=== PATIENT | male | born 1955 | race Caucasian/White ===

== ENCOUNTER 2018-10-28 17:33 | Inpatient (IN) | payer OTHER ==
[2018-10-28] MEDS: ENOXAPARIN 100 MG/ML SYR SQ SCH ×2 (01:00→13:00)
[2018-10-28 18:05] LABS: Absolute Lymphocytes (CBC) 1.6 K/uL (0.7-4.9); Basophils % 0.7 % (0-1.3); Hematocrit 34.7 % (39.6-49.0); Lymphocytes % 19.9 % (15.3-44.8); RBC Red Blood Cell Count 4.03 M/uL (4.33-5.43)
[2018-10-28 18:19] LABS: Protime INR 1.1
[2018-10-28 18:25] LABS: ALT/SGPT 23 U/L (12-78); AST/SGOT 17 U/L (15-37); Albumin 3.4 g/dL (3.4-5.0); Alkaline Phosphatase 72 U/L (45-117); BUN Blood Urea Nitrogen 18 mg/dL (7-18); Bicarbonate 25 mmol/L (21-32); Bilirubin Direct < 0.1 mg/dL (0-0.2); Bilirubin Total 0.2 mg/dL (0.2-1.0); Glucose Level 99 mg/dL (74-106); Magnesium 2.1 mg/dL (1.8-2.4); NT PRO-BNP 148 pg/mL (<125); Potassium 4.2 mmol/L (3.5-5.1); Protein, Total 7.1 g/dL (6.4-8.2); Sodium Level 141 mmol/L (136-145); Troponin (Emerg Dept Use Only) 0.03 ng/mL (0.0-0.045)
--- NOTE | 2018-10-28 19:30 | RAD REPORT ---
EXAM DESCRIPTION: Jone Single View10/28/2018 6:09 pm CLINICAL HISTORY: Chest pain COMPARISON: none FINDINGS: The lungs appear clear of acute infiltrate. The heart is normal size IMPRESSION: No acute abnormalities displayed
--- NOTE | 2018-10-28 21:24 | ER ---
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 Transition of care: patient was not received from another setting of care. Onset of symptoms was October 28, 2018. Risk Assessment: Do you want to hurt yourself or someone else? Patient reports no desire to harm self or others. Initial Sepsis Screen: Does the patient meet any 2 criteria? No. Patient's initial sepsis screen is negative. Does the patient have a suspected source of infection? No. Patient's initial sepsis screen is negative. Care prior to arrival: Medication(s) given: ASA, 81 mg, x 4, Nitroglycerin, x 1. 17:37 Method Of Arrival: EMS: [facility] sg 17:37 Acuity: GROVER 3 sg Historical: - Allergies: 17:35 No Known Allergies; hb - Home Meds: 17:40 Lisinopril Oral [Active]; Ambien Oral [Active]; sg - PMHx: 17:40 Hypertension; sg - Immunization history:: Adult Immunizations up to date. - Social history:: Smoking status: Patient/guardian denies using tobacco. - Ebola Screening: : No symptoms or risks identified at this time. Screenin:38 Abuse screen: Denies threats or abuse. Denies injuries from another. Nutritional hb screening: No deficits noted. Tuberculosis screening: No symptoms or risk factors identified. Fall Risk None identified. Assessment: 17:40 General: Appears in no apparent distress. well groomed, well developed, well nourished, sg Behavior is calm, cooperative, appropriate for age. Pain: Complains of pain in chest Quality of pain is described as aching, sharp. Neuro: Level of Consciousness is awake, alert, obeys commands, Oriented to person, place, time. Cardiovascular: Capillary refill is brisk in bilateral fingers Patient's skin is warm and dry. Chest pain is described as vague, quality is heaviness. Respiratory: Airway is patent Respiratory effort is even, unlabored, Respiratory pattern is regular, symmetrical. GI: Abdomen is round non-distended. : No signs and/or symptoms were reported regarding the genitourinary system. EENT: No signs and/or symptoms were reported regarding the EENT system. Derm: Skin is pink, warm \T\ dry. Musculoskeletal: Circulation, motion, and sensation intact. Range of motion: intact in all extremities. 17:41 Reassessment: Patient appears in no apparent distress at this time. sg 19:23 Reassessment: Patient appears in no apparent distress at this time. Patient and/or cc3 family updated on plan of care and expected duration. Pain level reassessed. Patient is alert, oriented x 3, equal unlabored respirations, skin warm/dry/pink. Received this male patient from morning shift RN David as a case of chest pain but currently patient denies chest pain. With IV cannula gauge 20 at the left ACV saline locked. Patient refused to wear patient gown. Patient denies pain at this time. Patient states feeling better. Patient states symptoms have improved. General: Appears in no apparent distress. comfortable, Behavior is calm, cooperative, appropriate for age. Pain: Denies pain. Neuro: Level of Consciousness is awake, alert, obeys commands, Oriented to person, place, time, situation, Appropriate for age. Cardiovascular: Denies chest pain, Capillary refill < 3 seconds Patient's skin is warm and dry. Respiratory: Airway is patent Respiratory effort is even, unlabored, Respiratory pattern is regular, symmetrical. GI: Abdomen is round non-distended. : No signs and/or symptoms were reported regarding the genitourinary system. EENT: No signs and/or symptoms were reported regarding the EENT system. Derm: Skin is intact, is healthy with good turgor, Skin is pink, warm \T\ dry. normal. Musculoskeletal: Circulation, motion, and sensation intact. Range of motion: intact in all extremities. 19:23 Pain: Pain does not radiate. Pain began 4 hours ago. cc3 20:15 Reassessment: Patient appears in no apparent distress at this time. Patient and/or cc3 family updated on plan of care and expected duration. Pain level reassessed. Patient is alert, oriented x 3, equal unlabored respirations, skin warm/dry/pink. repeat troponin taken as ordered and sent to laboratory. Patient denies pain at this time. 21:17 Reassessment: Patient appears in no apparent distress at this time. Patient and/or cc3 family updated on plan of care and expected duration. Pain level reassessed. Patient is alert, oriented x 3, equal unlabored respirations, skin warm/dry/pink. Patient denies pain at this time. 22:36 Reassessment: Patient appears in no apparent distress at this time. Patient and/or cc3 family updated on plan of care and expected duration. Pain level reassessed. Patient is alert, oriented x 3, equal unlabored respirations, skin warm/dry/pink. Patient denies pain at this time. 23:07 Reassessment: Patient appears in no apparent distress at this time. Patient and/or cc3 family updated on plan of care and expected duration. Pain level reassessed. Patient is alert, oriented x 3, equal unlabored respirations, skin warm/dry/pink. Room available in 205, charge nurse Hetal called report and handed over to JOHN Brock for continuity of care and management. 23:19 Reassessment: Patient appears in no apparent distress at this time. Patient and/or cc3 family updated on plan of care and expected duration. Pain level reassessed. Patient is alert, oriented x 3, equal unlabored respirations, skin warm/dry/pink. Patient left ER for admission vitally stable by wheelchair escorted by charge nurse Fong. No valuables left in the patient's room. Patient denies pain at this time. Patient states feeling better. Patient states symptoms have improved. Vital Signs: 17:35 BP 154 / 74; Pulse 68; Resp 15; Temp 98.2; Pulse Ox 99% on R/A; Pain 2/10; hb 18:53 BP 125 / 66; Pulse 60; Resp 17; Pulse Ox 100% on R/A; Pain 1/10; sg 19:23 BP 143 / 61; Pulse 60; Resp 19 S; Temp 97.7(O); Pulse Ox 100% on R/A; Pain 0/10; cc3 20:33 BP 134 / 70; Pulse 66; Resp 12 S; Pulse Ox 99% on R/A; cc3 21:18 BP 140 / 81; Pulse 57; Resp 15 S; Pulse Ox 98% on R/A; cc3 22:35 BP 155 / 89; Pulse 66; Resp 17 S; Pulse Ox 99% on R/A; cc3 23:10 BP 129 / 55; Pulse 63; Resp 16 S; Pulse Ox 98% on R/A; Pain 0/10; cc3 ED Course: 17:34 Patient arrived in ED. hb 17:37 David Woodard, RN is Primary Nurse. sg 17:37 Arm band placed on. hb 17:38 Patient has correct armband on for positive identification. Bed in low position. Call hb light in reach. Side rails up X 1. cardiac monitor on. Pulse ox on. NIBP on. 17:39 Triage completed. sg 17:40 No provider procedures requiring assistance completed. Initial lab(s) drawn, by la, sg sent to lab. Maintain EMS IV. Dressing intact. Good blood return noted. Site clean \T\ dry. Gauge \T\ site: 20 G LAC. IV is patent, is intact, with good blood return, Flushed left antecubital with 5 ml normal saline. Patient maintains SpO2 saturation greater than 95% on room air. 17:45 EKG done, by technology professional. reviewed by Kit Kumar MD. sm3 17:55 Kit Kumar MD is Attending Physician. kdr 18:10 XRAY Chest (1 view) In Process Unspecified. EDMS 19:27 Attending Physician role handed off by Kit Kumar MD gs 19:27 Tolu Conway MD is Attending Physician. gs 21:23 Hazel Stafford MD is Hospitalizing Provider. gs 23:08 Patient admitted, IV remains in place. fc Administered Medications: 21:27 CANCELLED (Inappropriate at this time): Aspirin Chewable Tablet 324 mg PO once; 81 mg cc3 tablets x 4 Outcome: 21:23 Decision to Hospitalize by Provider. 23:07 Admitted to Tele accompanied by tech, via wheelchair, room 205, with chart, Report fc called to Nay LOPEZ 23:07 Condition: good 23:07 Discharge instructions given to patient, Instructed on the need for admit, Demonstrated understanding of instructions. 23:19 Patient left the ED. cc3 Signatures: Dispatcher [employer] EDMS David Woodard RN RN Kit Kumar MD MD [facility] Hetal Romeo RN RN Dina Madden RN RN Tolu Conway MD MD gs Montes, Shakira [facility] Joy Cuello cc3 Corrections: (The following items were deleted from the chart) 17:40 17:35 BP 146 / 86; Pulse 68bpm; Resp 15bpm; Pulse Ox 99% RA; Temp 98.2F; Pain 5/10; hb hb 22:36 21:17 Reassessment: Patient appears in no apparent distress at this time. Patient cc3 and/or family updated on plan of care and expected duration. Pain level reassessed. Patient is alert, oriented x 3, equal unlabored respirations, skin warm/dry/pink. cc3 23:43 19:23 Reassessment: Patient appears in no apparent distress at this time. Patient cc3 and/or family updated on plan of care and expected duration. Pain level reassessed. Patient is alert, oriented x 3, equal unlabored respirations, skin warm/dry/pink. Received this male patient from morning shift JOHN Hernandez as a case of chest pain but currently patient denies chest pain. With IV cannula gauge 20 at the left ACV saline locked. Patient denies pain at this time. Patient states feeling better. Patient states symptoms have improved. cc3
--- NOTE | 2018-10-28 21:25 | EDPHYS ---
Physician Documentation [facility] Name: Anil Penaloza Age: 63 yrs Sex: Male : 1955 Arrival Date: 10/28/2018 Time: 17:34 Bed 5 Private MD: ED Physician Tolu Conway HPI: 10/28 18:44 This 63 yrs old Male presents to ER via EMS with complaints of Chest Pain. kdr 18:44 The patient or guardian reports chest pain that is located primarily in the substernal kdr area, anterior chest wall, bilaterally, chest diffusely. Onset: suddenly, today, at 15:30. The pain radiates to jaw. Associated signs and symptoms: Pertinent positives: nausea, Pertinent negatives: abdominal pain, cough, dizziness, headache, lower extremity pain, lower extremity swelling, lightheadedness, near syncope, palpitations, recent travel, shortness of breath, syncope, vomiting. The chest pain is described as aching, dull, a heaviness, a pressure. Duration: The patient or guardian reports a single episode, that is still ongoing, but improving. Modifying factors: The symptoms are alleviated by nothing. the symptoms are aggravated by nothing. Severity of pain: At its worst the pain was a 7 / 10 in the emergency department the pain is a 3 / 10. EMS care prior to arrival includes: aspirin. The patient has not experienced similar symptoms in the past, Not exactly like this though he has been having jaw pain for the past two week intermittently. Historical: - Allergies: 17:35 No Known Allergies; hb - Home Meds: 17:40 Lisinopril Oral [Active]; Ambien Oral [Active]; sg - PMHx: 17:40 Hypertension; sg - Immunization history:: Adult Immunizations up to date. - Social history:: Smoking status: Patient/guardian denies using tobacco. - Ebola Screening: : No symptoms or risks identified at this time. ROS: 18:44 Constitutional: Negative for fever, chills, and weight loss, Eyes: Negative for injury, kdr pain, redness, and discharge, ENT: Negative for injury, pain, and discharge, Neck: Negative for injury, pain, and swelling, Respiratory: Negative for shortness of breath, cough, wheezing, and pleuritic chest pain, Abdomen/GI: Negative for abdominal pain, nausea, vomiting, diarrhea, and constipation, Back: Negative for injury and pain, : Negative for injury, bleeding, discharge, and swelling, MS/Extremity: Negative for injury and deformity, Skin: Negative for injury, rash, and discoloration, Neuro: Negative for headache, weakness, numbness, tingling, and seizure activity. Psych: Negative for depression, anxiety, suicide ideation, homicidal ideation, and hallucinations, Allergy/Immunology: Negative for hives, rash, and allergies, Endocrine: Negative for neck swelling, polydipsia, polyuria, polyphagia, and marked weight changes, Hematologic/Lymphatic: Negative for swollen nodes, abnormal bleeding, and unusual bruising. 18:44 Cardiovascular: Positive for chest pain, Negative for edema, orthopnea, palpitations, paroxysmal nocturnal dyspnea, acute changes. Exam: 18:44 Constitutional: This is a well developed, well nourished patient who is awake, alert, kdr and in no acute distress. Head/Face: Normocephalic, atraumatic. Eyes: Pupils equal round and reactive to light, extra-ocular motions intact. Lids and lashes normal. Conjunctiva and sclera are non-icteric and not injected. Cornea within normal limits. Periorbital areas with no swelling, redness, or edema. Neck: Trachea midline, no thyromegaly or masses palpated, and no cervical lymphadenopathy. Supple, full range of motion without nuchal rigidity, or vertebral point tenderness. No Meningismus. Chest/axilla: Normal chest wall appearance and motion. Nontender with no deformity. No lesions are appreciated. Cardiovascular: Regular rate and rhythm with a normal S1 and S2. No gallops, murmurs, or rubs. Normal PMI, no JVD. No pulse deficits. Respiratory: Lungs have equal breath sounds bilaterally, clear to auscultation and percussion. No rales, rhonchi or wheezes noted. No increased work of breathing, no retractions or nasal flaring. Abdomen/GI: Soft, non-tender, with normal bowel sounds. No distension or tympany. No guarding or rebound. No evidence of tenderness throughout. Back: No spinal tenderness. No costovertebral tenderness. Full range of motion. Skin: Warm, dry with normal turgor. Normal color with no rashes, no lesions, and no evidence of cellulitis. MS/ Extremity: Pulses equal, no cyanosis. Neurovascular intact. Full, normal range of motion. Neuro: Awake and alert, GCS 15, oriented to person, place, time, and situation. Cranial nerves II-XII grossly intact. Motor strength 5/5 in all extremities. Sensory grossly intact. Cerebellar exam normal. Normal gait. Psych: Awake, alert, with orientation to person, place and time. Behavior, mood, and affect are within normal limits. 21:20 ENT: Nares patent. No nasal discharge, no septal abnormalities noted. Tympanic gs membranes are normal and external auditory canals are clear. Oropharynx with no redness, swelling, or masses, exudates, or evidence of obstruction, uvula midline. Mucous membranes moist. 21:20 ECG was reviewed by the Attending Physician. Vital Signs: 17:35 BP 154 / 74; Pulse 68; Resp 15; Temp 98.2; Pulse Ox 99% on R/A; Pain 2/10; hb 18:53 BP 125 / 66; Pulse 60; Resp 17; Pulse Ox 100% on R/A; Pain 1/10; sg 19:23 BP 143 / 61; Pulse 60; Resp 19 S; Temp 97.7(O); Pulse Ox 100% on R/A; Pain 0/10; cc3 20:33 BP 134 / 70; Pulse 66; Resp 12 S; Pulse Ox 99% on R/A; cc3 21:18 BP 140 / 81; Pulse 57; Resp 15 S; Pulse Ox 98% on R/A; cc3 22:35 BP 155 / 89; Pulse 66; Resp 17 S; Pulse Ox 99% on R/A; cc3 23:10 BP 129 / 55; Pulse 63; Resp 16 S; Pulse Ox 98% on R/A; Pain 0/10; cc3 MDM: 18:44 HEART Score: History: Moderately Suspicious (1), ECG: Non specific repolarization kdr disturbance / LBTB / PM (1), Age: > 45 and < 65 years (1), Risk Factors: 1 or 2 risk factors (1), Total Score = 4. Data reviewed: vital signs, nurses notes, lab test result(s), EKG, radiologic studies. Counseling: I had a detailed discussion with the patient and/or guardian regarding: the historical points, exam findings, and any diagnostic results supporting the discharge/admit diagnosis, the presence of at least one elevated blood pressure reading (>120/80) during this emergency department visit, lab results, radiology results, the need for further work-up and treatment in the hospital. 19:53 Patient medically screened. 21:20 Differential diagnosis: acute myocardial infarction, coronary artery disease chest wall gs pain, congestive heart failure. 21:20 Response to treatment: the patient's symptoms have resolved after treatment, the patient's pain is gone, the patient's condition has returned to base line. 10/28 17:49 Order name: Basic Metabolic Panel; Complete Time: 19:36 10/28 17:49 Order name: CBC with Diff; Complete Time: 19:36 10/28 17:49 Order name: LFT's; Complete Time: 19:36 10/28 17:49 Order name: Magnesium; Complete Time: 19:36 10/28 17:49 Order name: NT PRO-BNP; Complete Time: 19:36 10/28 17:49 Order name: PT-INR; Complete Time: 19:36 10/28 17:49 Order name: Troponin (emerg Dept Use Only); Complete Time: 19:36 10/28 17:49 Order name: XRAY Chest (1 view); Complete Time: 19:36 10/28 17:49 Order name: EKG; Complete Time: 17:51 10/28 19:57 Order name: Troponin (emerg Dept Use Only); Complete Time: 21:06 10/28 22:38 Order name: CONS Physician Consult [facility] 10/28 22:38 Order name: Troponin I [facility] 10/28 22:39 Order name: Echo with Doppler [facility] 10/28 17:49 Order name: Cardiac monitoring; Complete Time: 17:49 10/28 17:49 Order name: EKG - Nurse/Tech; Complete Time: 17:49 10/28 17:49 Order name: IV Saline Lock; Complete Time: 17:49 10/28 17:49 Order name: Labs collected and sent; Complete Time: 17:49 10/28 17:49 Order name: O2 Per Protocol; Complete Time: 17:50 10/28 17:49 Order name: O2 Sat Monitoring; Complete Time: 17:50 10/28 22:39 Order name: EKG Electrocardiogram EDVT EC:20 Rate is 70 beats/min. Rhythm is regular. ID interval is prolonged. QRS interval is gs prolonged. T waves are Inverted. Clinical impression: lbbb. Interpreted by me. Administered Medications: : CANCELLED (Inappropriate at this time): Aspirin Chewable Tablet 324 mg PO once; 81 mg cc3 tablets x 4 Disposition: 10/28/18 21:23 Hospitalization ordered by Hazel Stafford for Observation. Preliminary diagnosis are Precordial pain, Abnormal serum enzyme levels. - Bed requested for Telemetry/MedSurg (observation). - Status is Observation. cc3 - Condition is Stable. - Problem is new. - Symptoms are resolved. UTI on Admission? No Signatures: Dispatcher [employer] EDVT David Woodard RN RN Kit Kumar MD MD [facility] [address] Maureen Hrenandez RN RN Dina Madden RN RN Tolu Conway MD MD Joy Cuello cc3 Corrections: (The following items were deleted from the chart) 21:18 Aspirin Chewable Tablet 324 mg PO once; 81 mg tablets x 4 ordered. cc3 22:46 21:23 Hospitalization Ordered by Hazel Stafford MD for Observation. Preliminary cg diagnosis is Precordial pain; Abnormal serum enzyme levels. Bed requested for Telemetry/MedSurg (observation). Status is Observation. Condition is Stable. Problem is new. Symptoms are resolved. UTI on Admission? No. 23:19 22:46 10/28/2018 21:23 Hospitalization Ordered by Hazel Stafford MD for Observation. cc3 Preliminary diagnosis is Precordial pain; Abnormal serum enzyme levels. Bed requested for Telemetry/MedSurg (observation). Status is Observation. Condition is Stable. Problem is new. Symptoms are resolved. UTI on Admission? No.
[2018-10-28] MEDS ORDERED: ALPRAZOLAM 0.25 MG TABLET PO PRN (22:31)
[2018-10-28] MEDS ORDERED: ACETAMINOPHEN 500 MG TAB PO PRN (22:31)
[2018-10-28] MEDS ORDERED: MORPHINE 4 MG/ML SYR IV PRN (22:31)
[2018-10-28 23:40] VITALS: BMI 30.7
[2018-10-29] MEDS: ENOXAPARIN 100 MG/ML SYR SQ SCH (00:18)
[2018-10-29] MEDS: ZOLPIDEM TARTRATE 10 MG TABLET PO SCH ×2 (00:18→20:53)
[2018-10-29] MEDS: LOSARTAN POTASSIUM 50 MG TABLET PO SCH ×2 (00:18→20:53)
[2018-10-29 06:15] LABS: Urine Appearance CLEAR; Urine Bilirubin NEGATIVE (NEG); Urine Blood NEGATIVE (NEG); Urine Color YELLOW; Urine Glucose NEGATIVE (NEG); Urine Protein NEGATIVE (NEG); Urine Specific Gravity 1.015 (1.005-1.030); Urine Urobilinogen 0.2 mg/dL (0.2-1.0)
[2018-10-29 06:22] LABS: Urine Microscopic Reflex NO UMIC
[2018-10-29 06:23] LABS: Absolute Lymphocytes (CBC) 1.4 K/uL (0.7-4.9); Basophils % 0.7 % (0-1.3); Hematocrit 34.2 % (39.6-49.0); Lymphocytes % 19.3 % (15.3-44.8); MPV 8.2 fL (7.6-11.3); RBC Red Blood Cell Count 3.99 M/uL (4.33-5.43)
[2018-10-29 06:42] LABS: Potassium 4.5 mmol/L (3.5-5.1)
--- NOTE | 2018-10-29 07:36 | P.HP ---
Certification for Inpatient Patient admitted to: Inpatient With expected LOS: >2 Midnights Patient will require the following post-hospital care: None Practitioner: I am a practitioner with admitting privileges, knowledge of patient current condition, hospital course, and medical plan of care. Services: Services provided to patient in accordance with Admission requirements found in Title 42 Section 412.3 of the Code of Federal Regulations Patient History Date of Service: 10/28/18 Reason for admission: Elevated troponin/CP/ACS History of Present Illness: Patient is a 63yo who was at home and suddenly experienced chest pain. Pain that is located primarily in the substernal area, anterior chest wall. The pain radiates to jaw. Patient also has nausea. Pain was 7/10. Patient noticed some jaw pain for 2 weeks. He smokes 1/2 PPD, and his father had heart disease by the age of 50. Patient will be admitted for further evaluation. Prior echocardiogram and stress test have been negative. Allergies No Known Allergies Allergy (Verified 02/13/16 09:48) Home Medications: Aspirin [Aspirin EC 81 MG] 81 mg PO BEDTIME 10/20/14 Zolpidem Tartrate [Ambien*] 10 mg PO BEDTIME 10/20/14 Losartan Potassium [Cozaar*] 50 mg PO BEDTIME 02/13/16 - Past Medical/Surgical History Has patient received pneumonia vaccine in the past: No Diabetic: No -: HTN -: Cataracts -: Sinus Surg - Social History Smoking Status: Current every day smoker Alcohol use: Yes CD- Drugs: No Caffeine use: Yes Place of Residence: Home Review of Systems 10-point ROS is otherwise unremarkable Physical Examination - Vital Signs Temperature: 97.1 F Blood Pressure: 118/55 Pulse: 57 Respirations: 15 Pulse Ox (%): 96 - Physical Exam General: Alert, In no apparent distress, Oriented x3 HEENT: Atraumatic, PERRLA, Mucous membr. moist/pink, EOMI, Sclerae nonicteric Neck: Supple, 2+ carotid pulse no bruit, No LAD, Without JVD or thyroid abnormality Respiratory: Clear to auscultation bilaterally, Normal air movement Cardiovascular: Regular rate/rhythm, Normal S1 S2, No murmurs Gastrointestinal: Normal bowel sounds, Soft and benign, Non-distended, No tenderness Musculoskeletal: No clubbing, No swelling, No tenderness Integumentary: No rashes Neurological: Normal gait, Normal speech, Normal strength at 5/5 x4 extr, Normal tone, Sensation intact, Cranial nerves 3-12 intact, Normal affect Lymphatics: No axilla or inguinal lymphadenopathy - Studies Laboratory Data (last 24 hrs) 10/28/18 17:50: PT 12.9 H, INR 1.10 10/28/18 17:50: WBC 7.9, Hgb 11.4 L, Hct 34.7 L, Plt Count 195 10/28/18 17:50: Sodium 141, Potassium 4.2, BUN 18, Creatinine 1.14, Glucose 99, Magnesium 2.1, Total Bilirubin 0.2, AST 17, ALT 23, Alkaline Phosphatase 72 Assessment & Plan - Problems (Diagnosis) (1) ACS (acute coronary syndrome) Current Visit: Yes Status: Acute (2) Tobacco abuse Current Visit: Yes Status: Acute (3) Family history of coronary artery disease in father Current Visit: Yes Status: Acute (4) HTN (hypertension) Current Visit: Yes Status: Acute - Plan PLAN: 1. Serial troponin and EKG, lipid profile 2. Cardiology consult 3. Lovenox 4. Antiplatelet therapy, statin therapy 5. Lopressor 6. NPO 7. Telemetry 8. Possible cardiac catheterization in am Discharge Plan: Home Plan to discharge in: Greater than 2 days - Advance Directives Does patient have a Living Will: No Does patient have a Durable POA for Healthcare: No - Code Status/Comfort Care Code Status Assessed: Yes Code Status: Full Code Critical Care: No Time Spent Managing PTS Care (In Minutes): 45
[2018-10-29] MEDS: ASPIRIN 325 MG TAB PO SCH (08:27)
[2018-10-29] MEDS: METOPROLOL TAR 25 MG TAB PO SCH ×2 (08:31→20:52)
[2018-10-29] MEDS ORDERED: NA CHLORIDE 0.9% 1,000 ML IV SCH (09:00)
[2018-10-29] MEDS ORDERED: ENOXAPARIN 100 MG/ML SYR SQ SCH (09:00)
[2018-10-29] MEDS ORDERED: HEPA 1000U/500MLS 1,000 UNIT/500 ML BAG IV ONE (11:08)
--- NOTE | 2018-10-29 11:24 | P.PN ---
Subjective Date of Service: 10/29/18 Chief Complaint: Elevated troponin/CP/ACS Subjective: Improving Patient seen and examined at bedside. at bedside. Chart reviewed and case discussed with nursing staff and cardiology. Patient doing well, no concerns complaints this morning. He is pending cardiac catheterization today Review of Systems 10-point ROS is otherwise unremarkable Physical Examination - Vital Signs Temperature: 97.1 F Blood Pressure: 140/64 Pulse: 59 Respirations: 15 Pulse Ox (%): 96 - Physical Exam General: Alert, In no apparent distress, Oriented x3 HEENT: Atraumatic, PERRLA, EOMI Neck: Supple, JVD not distended Respiratory: Clear to auscultation bilaterally, Normal air movement Cardiovascular: Regular rate/rhythm, Normal S1 S2 Gastrointestinal: Normal bowel sounds, No tenderness Musculoskeletal: No tenderness Integumentary: No rashes Neurological: Normal speech, Normal tone, Normal affect Lymphatics: No axilla or inguinal lymphadenopathy - Studies Laboratory Data (last 24 hrs) 10/28/18 17:50: PT 12.9 H, INR 1.10 10/28/18 17:50: WBC 7.9, Hgb 11.4 L, Hct 34.7 L, Plt Count 195 10/28/18 17:50: Sodium 141, Potassium 4.2, BUN 18, Creatinine 1.14, Glucose 99, Magnesium 2.1, Total Bilirubin 0.2, AST 17, ALT 23, Alkaline Phosphatase 72 Assessment And Plan - Current Problems (Diagnosis) (1) NSTEMI (non-ST elevated myocardial infarction) Current Visit: Yes Status: Acute Plan: -troponin elevated x 2 -Cardiology consult -Lovenox -Antiplatelet therapy, statin therapy -Lopressor -NPO, pending cardiac cath today -Telemetry (2) Family history of coronary artery disease in father Current Visit: Yes Status: Acute (3) HTN (hypertension) Current Visit: No Status: Chronic Plan: Stable, Continue current medications. Will monitor and adjust as needed. Qualifiers: Hypertension type: essential hypertension Qualified Code(s): I10 - Essential (primary) hypertension (4) Tobacco abuse Current Visit: Yes Status: Chronic - Plan DVT prophylaxis: Lovenox GI prophylaxis: None Diet: NPO pending cardiac catheterization Disposition: Pending cardiac catheterization today Discharge Plan: Home Plan to discharge in: 48 Hours
[2018-10-29] MEDS ORDERED: NA CHLORIDE 0.9% 500 ML ONE (11:28)
[2018-10-29] MEDS ORDERED: NA CHLORIDE 0.9% 50 ML ONE (11:28)
[2018-10-29] MEDS ORDERED: MIDAZOLAM HCL 2 MG/2 ML INJ ONE (11:29)
[2018-10-29] MEDS ORDERED: FENTANYL CITR 100 MCG/2 ML ONE (11:29)
[2018-10-29] MEDS ORDERED: ATROPINE SULF 1 MG/10 ML SYR IV ONE (11:30)
--- NOTE | 2018-10-29 11:35 | EKG ---
Test Date: 2018-10-29 Test Time: 07:49:53 Keeper Helper: JENN MEASUREMENT RESULTS: Intervals: Rate: 57 ND: 242 QRSD: 168 QT: 464 QTc: 451 [place]: P: 63 ND: 242 QRS: -56 T: 88 INTERPRETIVE STATEMENTS: Sinus bradycardia with 1st degree AV block Left axis deviation Left bundle branch block Abnormal ECG Compared to ECG 10/28/2018 17:32:10 Sinus rhythm no longer present Electronically Signed On 10-29-18 11:34:29 CDT by Jose Luis Jay
--- NOTE | 2018-10-29 11:37 | EKG ---
Test Date: 2018-10-28 Test Time: 17:32:10 Animal Taxonomist: JOSE MEASUREMENT RESULTS: Intervals: Rate: 70 HI: 234 QRSD: 166 QT: 442 QTc: 477 [place]: P: 59 HI: 234 QRS: -45 T: 98 INTERPRETIVE STATEMENTS: Sinus rhythm with 1st degree AV block Left axis deviation Left bundle branch block Abnormal ECG No previous ECG available for comparison Electronically Signed On 10-29-18 11:34:57 CDT by Jose Luis Jay
[2018-10-29] MEDS ORDERED: PRASUGREL (EFFIENT) 10 MG TAB ONE (12:04)
--- NOTE | 2018-10-29 12:45 | CON ---
Date of Consultation: 10/29/[address] Stafford's service on 10/28/2018. I saw the patient on 10/29/2018. Reason For Consultation: Non-ST elevation myocardial infarction. History Of Present Illness: Mr. Penaloza is a 63-year-old male, has a positive family history of he art disease. He smokes. He has a history of hypertension. No diabetes or dyslipidemia. Has been h aving some chest pain radiating to the jaw for about 2 weeks with exertion. Yesterday symptoms laste d about an hour. He was nauseated. No diaphoresis. No PND, orthopnea, pedal edema, palpitations, o r syncope. He came to the emergency room, was noted to have a left bundle-branch block. His troponi n was positive, consistent with non-ST elevation myocardial infarction. Allergies: NONE. Review of Systems: Negative. Social History: Positive for tobacco. Family History: Positive for heart disease. Medications: Listed by primary care physician. Physical Examination: Vital Signs: Stable. He was afebrile. He was in a sinus rhythm. HEENT: Negative. Neck: Supple without any bruit, lymphadenopathy, JVD, or thyromegaly. Chest: Clear to auscultation and percussion. Cardiac: Revealed a regular rhythm and rate. No murmurs, gallops, or rubs. Abdomen: Benign. Extremities: Reveal no clubbing, cyanosis, or edema. Diagnostic Data: Stated earlier. He had a normal creatinine. Impression And Plan: The patient with multiple cardiac risk factors for heart disease including fami ly history, tobacco use, hypertension with classic symptoms of acute coronary syndrome, left bundle-b ranch block, positive troponin. Patient needs a heart catheterization done today to evaluate his cor onary anatomy. Risk and the benefit of the procedure were explained to him and he agreed to proceed. MARKY/CALI Voice ID: [id number] Report ID: [id number]
--- NOTE | 2018-10-29 13:51 | ECHO ---
HEIGHT: 5 ft 11 in WEIGHT: 220 lb 4.8 oz DATE OF STUDY: 10/29/[address]: Hazel Stafford MD 2-DIMENSIONAL: YES M.MODE: YES DOPPLER: YES COLOR FLOW: YES TDS: NO PORTABLE: NO DEFINITY: NO BUBBLE STUDY: NO DIAGNOSIS: CHEST PAIN CARDIAC HISTORY: CATHERIZATION: NO SURGERY: NO PROSTHETIC VALVE: NO PACEMAKER: NO MEASUREMENTS (cm) DIASTOLIC (NORMALS) SYSTOLIC (NORMALS) IVSd 1.2 (0.6-1.2) LA Diam 3.9 (1.9-4.0) LVEF 51% LVIDd 3.9 (3.5-5.7) LVIDs 2.9 (2.0-3.5) %FS 25% LVPWd 1.1 (0.6-1.2) Ao Diam 2.7 (2.0-3.7) 2 DIMENSIONAL ASSESSMENT: RIGHT ATRIUM: NORMAL LEFT ATRIUM: NORMAL RIGHT VENTRICLE: NORMAL LEFT VENTRICLE: NORMAL TRICUSPID VALVE: NORMAL MITRAL VALVE: NORMAL PULMONIC VALVE: NORMAL AORTIC VALVE: NORMAL PERICARDIAL EFFUSION: NONE AORTIC ROOT: NORMAL LEFT VENTRICULAR WALL MOTION: NORMAL. DOPPLER/COLOR FLOW: NORMAL. COMMENTS: NORMAL 2D ECHO WITH DOPPLER. NO WALL MOTION ABNORMALITY. NO EFFUSION. TECHNOLOGIST: RADHA RODGERS
[2018-10-29] MEDS ORDERED: NA CHLORIDE 0.9% 1,000 ML IV ONE (14:00)
[2018-10-29] MEDS ORDERED: ATORVASTATIN 40 MG TAB PO SCH (21:00)
[2018-10-29 23:27] VITALS: O2SAT 96
--- NOTE | 2018-10-30 03:34 | OP ---
Date of Procedure: 10/29/2018 Surgeon: Jose Luis Jay MD Coal Trammer: Jen Sandoval. Indications: Mr. Penaloza is a 63-year-old male who was admitted with an acute non-ST elevation nahum cardial infarction. Description Of Procedure: He was brought to the metallurgical lab technician today on 10/29/2018 as an inpatient. He wa s prepped and draped in the routine sterile fashion. He received 2 mg of Versed and 25 of fentanyl f or sedation. 6-[place]izen [place] sheath was introduced in the right common femoral artery successfully. Angiog aline there was normal. Angio-Seal was used to close the case. Diagnostic catheterization with 6-Fr ench Fili catheter revealed a normal right coronary artery except for mild plaquing. LAD had some mild plaquing. The circumflex system showed a 90% occlusion of his first obtuse marginal, which was a large vessel with what appeared to be a thrombus. An XB 3.5 guide with side hole was used. A Cou gar wire was used to cross the lesion. Primary stent with a 3.0 x 12 Synergy at 11 atmospheres was d one with 0% residual. No thrombosis. No acute closure. Patient tolerated the procedure well. Ther e were no complications. Blood Loss: 5 cc. Total Conscious Sedation: 45 minutes. Final Diagnosis: Acute myocardial infarction, status post stent of the obtuse marginal. Patient received aspirin, Effient 60 mg, and Angiomax during the procedure. He will stay overnight, go home in the morning. He will be on Cozaar, aspirin, Plavix, and Lipitor 80 mg daily. NB/MODL Voice ID: [id number] Report ID: [id number]
[2018-10-30 04:25] LABS: Absolute Lymphocytes (CBC) 1.2 K/uL (0.7-4.9); Basophils % 0.6 % (0-1.3); Hematocrit 33.4 % (39.6-49.0); Lymphocytes % 13.7 % (15.3-44.8); RBC Red Blood Cell Count 3.93 M/uL (4.33-5.43)
[2018-10-30 04:43] LABS: Potassium 4.5 mmol/L (3.5-5.1)
[2018-10-30] MEDS: ASPIRIN 325 MG TAB PO SCH (08:12)
[2018-10-30] MEDS: METOPROLOL TAR 25 MG TAB PO SCH (08:12)
[2018-10-30 08:13] VITALS: BP 152/67
[2018-10-30 08:22] VITALS: TEMP 97.5
--- NOTE | 2018-10-30 14:58 | P.DS ---
Admission Date: 10/28/18 Discharge Date: 10/30/18 Disposition: ROUTINE DISCHARGE Discharge Condition: GOOD Reason for Admission: Elevated troponin/CP/ACS Consultations: Cardiology Procedures: 10/29/2018: Cardiac cath with stent placement to circumflex artery. - Problems (1) NSTEMI (non-ST elevated myocardial infarction) Status: Acute (2) Family history of coronary artery disease in father Status: Acute (3) HTN (hypertension) Status: Chronic Qualifiers: Hypertension type: essential hypertension Qualified Code(s): I10 - Essential (primary) hypertension (4) Tobacco abuse Status: Chronic Brief History of Present Illness: Patient is a 63yo who was at home and suddenly experienced chest pain. Pain that is located primarily in the substernal area, anterior chest wall. The pain radiates to jaw. Patient also has nausea. Pain was 7/10. Patient noticed some jaw pain for 2 weeks. He smokes 1/2 PPD, and his father had heart disease by the age of 50. Patient will be admitted for further evaluation. Prior echocardiogram and stress test have been negative. Hospital Course: Patient was admitted for chest pain, found to have elevated troponin. Cardiology consulted. Diagnosed with NSTEMI. He underwent a cardiac catheterization requiring a stent placement in circumflex artery. Patient tolerated procedure well. He was then discharged home in a safe and stable manner on Asa, plavix, staing and cozaar. he will follow up with Dr. Jay in his office. He otherwise remained stable throughout the stay. Vital Signs/Physical Exam: Temp Pulse Resp BP Pulse Ox 97.5 F 67 16 152/67 H 95 10/30/18 08:00 10/30/18 08:12 10/30/18 08:00 10/30/18 08:12 10/30/18 08:00 General: Alert, In no apparent distress, Oriented x3 HEENT: Atraumatic, PERRLA, EOMI Neck: Supple, JVD not distended Respiratory: Clear to auscultation bilaterally, Normal air movement Cardiovascular: Regular rate/rhythm, Normal S1 S2 Gastrointestinal: Normal bowel sounds, No tenderness Musculoskeletal: No tenderness Integumentary: No rashes Neurological: Normal speech, Normal tone, Normal affect Lymphatics: No axilla or inguinal lymphadenopathy Laboratory Data at Discharge: WBC 8.9 K/uL (4.3-10.9) D 10/30/18 04:00 Hgb 11.1 g/dL (13.6-17.9) L 10/30/18 04:00 Hct 33.4 % (39.6-49.0) L 10/30/18 04:00 Plt Count 184 K/uL (152-406) 10/30/18 04:00 PT 12.9 SECONDS (9.5-12.5) H 10/28/18 17:50 INR 1.10 10/28/18 17:50 Sodium 143 mmol/L (136-145) 10/30/18 04:00 Potassium 4.5 mmol/L (3.5-5.1) 10/30/18 04:00 BUN 16 mg/dL (7-18) 10/30/18 04:00 Creatinine 1.04 mg/dL (0.55-1.3) 10/30/18 04:00 Glucose 91 mg/dL (74-106) 10/30/18 04:00 Magnesium 2.1 mg/dL (1.8-2.4) 10/28/18 17:50 Total Bilirubin 0.2 mg/dL (0.2-1.0) 10/28/18 17:50 AST 17 U/L (15-37) 10/28/18 17:50 ALT 23 U/L (12-78) 10/28/18 17:50 Alkaline Phosphatase 72 U/L (45-117) 10/28/18 17:50 Troponin I 1.54 ng/mL (0.0-0.045) H* 10/29/18 05:35 Triglycerides Cancelled 10/29/18 06:00 Cholesterol Cancelled 10/29/18 06:00 HDL Cholesterol Cancelled 10/29/18 06:00 Cholesterol/HDL Ratio Cancelled 10/29/18 06:00 Home Medications: Aspirin [Aspirin EC 81 MG] 81 mg PO BEDTIME 10/20/14 Zolpidem Tartrate [Ambien*] 10 mg PO BEDTIME 10/20/14 Losartan Potassium [Cozaar*] 50 mg PO BEDTIME 02/13/16 Atorvastatin Calcium [Lipitor] 80 mg PO BEDTIME #30 tab 10/29/18 Clopidogrel Bisulfate [Plavix] 75 mg PO DAILY #30 tablet 10/29/18 New Medications: Atorvastatin Calcium [Lipitor] 80 mg PO BEDTIME #30 tab Clopidogrel Bisulfate [Plavix] 75 mg PO DAILY #30 tablet Patient Discharge Instructions: Please follow up with cardiology in 2 weeks. Diet: AHA Followup: Jose Luis Jay MD [ACTIVE - CAN ADMIT] -
--- NOTE | 2018-10-30 15:25 | PN ---
Date of Progress Note: 10/30/2018 Mr. Penaloza was admitted with an acute non-ST elevation myocardial infarction. Heart catheterizati on was done yesterday showing a 99% obtuse marginal stenosis and diffuse plaquing throughout. He und erwent a stent 3.0 x 12 Synergy without any complication and 0% residual. Overnight, he did well. H is groin showed no hematoma. Telemetry was normal. His examination is normal. He has no complaint. I will send him home today on Cozaar, aspirin, Lipitor 80 mg daily, and Plavix 75 mg daily. He was instructed to quit smoking. He will follow up with Dr. Castelan in the near future. MARKY/CALI Voice ID: [id number] Report ID: [id number]
== END 2018-10-30 08:40 | disposition home or self-care (01) | DRG 247 ==
LOC: ER 17:33 → 2ND 22:55
PROVIDERS: ADMIT Hospitalist; ATTEND Hospitalist
PROC: 027034Z Dilation of Coronary Artery, One Artery with Drug-eluting Intraluminal Device, Percutaneous Approach (ICD-10-PCS; principal; 2018-10-29)
PROC: 4A023N7 Measurement of Cardiac Sampling and Pressure, Left Heart, Percutaneous Approach (ICD-10-PCS; 2018-10-29)
PROC: B201YZZ Plain Radiography of Multiple Coronary Arteries using Other Contrast (ICD-10-PCS; 2018-10-29)
PROC: B205YZZ Plain Radiography of Left Heart using Other Contrast (ICD-10-PCS; 2018-10-29)
DX: I21.4 Non-ST elevation (NSTEMI) myocardial infarction (principal); I10 Essential (primary) hypertension; F17.210 Nicotine dependence, cigarettes, uncomplicated; Z82.49 Family history of ischemic heart disease and other diseases of the circulatory system
CPT/HCPCS: 36415; 71045; 80048; 80061; 80076; 81003; 83735; 83880; 84484; 85025; 85347; 85610; 92928; 93005; 93306; 93454; 99285; C1725; C1760; C1893; J0583; J1650; J2250; J3010; J7030

== ENCOUNTER 2019-05-20 06:27 | Day surgery (SDC) | payer OTHER ==
[2019-05-19 14:01] LABS: Absolute Lymphocytes (CBC) 1.2 K/uL (0.7-4.9); Basophils % 0.8 % (0-1.3); Hematocrit 32.4 % (39.6-49.0); Lymphocytes % 16.6 % (15.3-44.8); MPV 8.2 fL (7.6-11.3); RBC Red Blood Cell Count 4.02 M/uL (4.33-5.43)
[2019-05-19 14:04] LABS: Protime INR 1.15
[2019-05-19 14:14] LABS: Potassium 5.2 mmol/L (3.5-5.1)
--- NOTE | 2019-05-19 14:22 | RAD REPORT ---
EXAM DESCRIPTION: RAD - Chest Pa And Lat (2 Views) - 05/19/2019 2:13 pm CLINICAL HISTORY: left heart cath Chest pain. COMPARISON: Chest Single View dated 10/28/2018 FINDINGS: The lungs are clear. The heart is upper limit of normal in size. No displaced fractures. IMPRESSION: No acute or concerning finding suspected.
[2019-05-20] MEDS ORDERED: LIDOCAINE 1% MPF 30 ML VIAL ONE (06:34)
[2019-05-20] MEDS ORDERED: HEPA 1000U/500MLS 1,000 UNIT/500 ML BAG IV ONE (06:34)
[2019-05-20] MEDS ORDERED: NA CHLORIDE 0.9% 500 ML ONE (06:44)
[2019-05-20] MEDS ORDERED: MIDAZOLAM HCL 2 MG/2 ML INJ ONE ×2 (07:14→07:22)
[2019-05-20] MEDS ORDERED: NA CHLORIDE 0.9% 0 ML ONE (07:15)
[2019-05-20] MEDS ORDERED: ATROPINE SULF 1 MG/10 ML SYR IV ONE (07:15)
[2019-05-20] MEDS ORDERED: FENTANYL CITR 100 MCG/2 ML ONE (07:15)
--- NOTE | 2019-05-20 07:53 | OP ---
Surgeon: Jose Luis Jay MD Shell Assembler: Vlad Lubin. Admitted to my service as an outpatient to the finishing lab technician for a left heart catheterization and selectiv e coronary arteriogram. Indication: Coronary artery disease, status post stent of the OM in October 2018, now with unstable a ngina symptoms. Patient was prepped and draped in routine sterile fashion, given Versed for IV sedat ion. A 6-Kh[place] sheath introduced in the right common femoral artery successfully. Angio-Seal was u sed to close the case. Fili catheter 6-Khmer left and right were used to cannulate the left main and the right main respectively. He had a normal left main. The OM stent was perfectly patent. He has some moderate plaquing throughout the LAD, PDA, RCA and posterolateral but no focal stenosis. T here were no complications. Blood Loss: 5 mL. Postoperative Diagnosis: Moderate CAD, patent OM stent. Plan: To continue medical therapy. Also, suggested a proton pump inhibitor for his symptoms as they may have been gastroesophageal reflux disease related. Anesthesia: Total conscious sedation 30 minutes. MARKY/MODKrys Voice ID: [id number] Report ID: [id number]
[2019-05-20 09:52] VITALS: BP 121/76; TEMP 97.4; O2SAT 98
== END 2019-05-20 09:50 | disposition home health service (06) ==
LOC: CCL 06:27
DX: I25.110 Atherosclerotic heart disease of native coronary artery with unstable angina pectoris (principal); I10 Essential (primary) hypertension; E78.5 Hyperlipidemia, unspecified; Z95.5 Presence of coronary angioplasty implant and graft; Z87.891 Personal history of nicotine dependence; Z82.49 Family history of ischemic heart disease and other diseases of the circulatory system
CPT/HCPCS: 85025; 80048; 36415; 85610; 85730; 71046; 93454; C1893; C1760; J2250; J3010; J7040; J0583

== ENCOUNTER 2020-01-12 08:40 | Day surgery (SDC) | payer OTHER ==
--- NOTE | 2020-01-11 16:05 | RAD REPORT ---
EXAM DESCRIPTION: RAD - Chest Pa And Lat (2 Views) - 01/11/2020 3:59 pm CLINICAL HISTORY: pre op Chest pain. COMPARISON: Chest Pa And Lat (2 Views) dated 05/19/2019; Chest Single View dated 10/28/2018 FINDINGS: The lungs are clear. The heart is upper limit normal in size. No displaced fractures.
[2020-01-11 16:12] LABS: Absolute Lymphocytes (CBC) 1.3 K/uL (0.7-4.9); Hematocrit 30.8 % (39.6-49.0); Lymphocytes % 17.3 % (15.3-44.8); RBC Red Blood Cell Count 3.93 M/uL (4.33-5.43)
[2020-01-11 16:49] LABS: Potassium 4.7 mmol/L (3.5-5.1)
[2020-01-12] MEDS ORDERED: Ringers Lactate 1,000 ML IV ONE (09:34)
[2020-01-12] MEDS: CEFAZOLIN/SWI 1gm 1 GM/10 ML SYR ONE ×2 (10:45→11:10)
[2020-01-12] MEDS ORDERED: MIDAZOLAM HCL 2 MG/2 ML INJ ONE ×2 (10:54→11:33)
[2020-01-12] MEDS ORDERED: FENTANYL CITR 100 MCG/2 ML ONE (10:54)
[2020-01-12] MEDS ORDERED: propofoL 200 MG/20 ML VIAL IV ONE (10:54)
[2020-01-12] MEDS ORDERED: LIDOCAINE 1% MPF 5 ML VIAL ONE (10:54)
[2020-01-12] MEDS ORDERED: KETOROLAC 30 MG/ML INJ ONE (11:38)
[2020-01-12 12:03] VITALS: TEMP 97.5
--- NOTE | 2020-01-12 12:06 | P.BOP ---
Preoperative diagnosis: right upper back infected subq mass Postoperative diagnosis: same Primary procedure: excisional biopsy of right upper back infected subq mass 4x3 cm Estimated blood loss: <10cc Specimen: pus and mass Findings: see dicta Anesthesia: MAC Drain(s): Other Transferred to: Recovery Room Condition: Good
[2020-01-12] MEDS ORDERED: CODEINE 30MG/APAP 300MG TAB PO ONE (12:45)
--- NOTE | 2020-01-12 12:52 | OP ---
Date of Procedure: 01/12/2020 Surgeon: Garcia Mcclelland MD Preoperative Diagnosis: Right upper back infected subcutaneous mass. Postoperative Diagnosis: Right upper back infected subcutaneous mass. Procedure: Excisional biopsy of right upper back infected subcutaneous mass 4 x 3 cm. Estimated Blood Loss: Less than 10 mL. Specimen: Mass. Indications: This is the case of a 64-year-old patient with infected back mass. Regardless of antib iotics, he is still getting worse today. He is producing purulent discharge. Benefits, alternatives , and risks of excisional biopsy of that mass with drainage of an abscess fully explained, which incl ude, but not limited to infection, bleeding, damage to adjacent structures, anesthesia complication, recurrence, LA and even . He also understands this may not relieve the symptoms. He might need more than one surgical intervention. He understands he may require wound care. The will be do ing those. He signed a consent. The area of concern was marked by me and the patient in the holding room. Procedure In Detail: The patient was brought to the operating room and placed in supine position. A nesthesia was done without complication. The patient was placed in lateral decubitus position with p kelly protection. Local anesthesia was applied after prepping the area in the usual sterile fashion and after doing time-out. An incision was made in the skin and medially purulent discharge was obtai nehemias, so we proceeded to remove the mass and then drained the abscess. The mass completely excised. Abscess was cultured. Area was profusely irrigated. The hemostasis was obtained and due to that abo ut infection, we could have to leave it open to close by secondary intention. So, we packed the area wet-to-dry. The patient tolerated the procedure well. The patient was sent to recovery in stable condition. MALINDA/CALI Voice ID: [id number] Report ID: [id number]
--- NOTE | 2020-01-12 12:52 | DS ---
Diagnosis: Right upper back infected subcutaneous mass. Procedure: Excisional biopsy of right upper back infected subcutaneous mass with abscess drainage. Disposition: Home. Activity: As tolerated, no heavy lifting. Plan: Wet-to-dry dressing, normal saline starting tomorrow morning. May clean the area with soap an d water. MALINDA/CALI Voice ID: [id number] Report ID: [id number]
--- NOTE | 2020-01-12 13:00 | EKG ---
Test Date: 2020-01-11 Test Time: 15:37:08 Senior Gis Analyst: AUSTEN MEASUREMENT RESULTS: Intervals: Rate: 53 [place]: 246 QRSD: 170 QT: 468 QTc: 439 [place]: P: 68 [place]: 246 QRS: 3 T: 92 INTERPRETIVE STATEMENTS: Sinus bradycardia with 1st degree AV block Nonspecific intraventricular block Abnormal ECG Compared to ECG 10/29/2018 07:49:53 Left-axis deviation no longer present Left bundle-branch block no longer present Electronically Signed On 01-12-20 12:59:13 CDT by Jose Luis Jay
[2020-01-12 13:22] VITALS: BP 112/52; O2SAT 100
== END 2020-01-12 13:11 | disposition home or self-care (01) ==
LOC: OR 08:40
PROVIDERS: ATTEND Surgery
PROC: 0JB70ZZ Excision of Back Subcutaneous Tissue and Fascia, Open Approach (ICD-10-PCS; principal; 2020-01-12 13:00)
DX: L72.0 Epidermal cyst (principal); L08.9 Local infection of the skin and subcutaneous tissue, unspecified; I10 Essential (primary) hypertension; I51.9 Heart disease, unspecified; Z20.828 Contact with and (suspected) exposure to other viral communicable diseases
CPT/HCPCS: 93005; 87070; 85025; 80048; 36415; 87205; 88304; 87075; 71046; 11404; J2704; J2250 ×2; J3010; J0690; J7120; 88305

== ENCOUNTER 2022-03-27 13:57 | Emergency (ER) | payer OTHER ==
[2022-03-27 14:36] LABS: Absolute Lymphocytes (CBC) 0.8 K/uL (0.7-4.9); Hematocrit 21.4 % (39.6-49.0); Lymphocytes % 10.5 % (15.3-44.8); MCV 71.9 fL (80-100); MPV 7.1 fL (7.6-11.3); RBC Red Blood Cell Count 2.97 M/uL (4.33-5.43)
[2022-03-27 14:45] LABS: Protime INR 1.3
[2022-03-27 15:09] LABS: Potassium 4.4 mmol/L (3.5-5.1); Troponin High Sensitivity 9.6 pg/mL (<58.9)
[2022-03-27] MEDS ORDERED: NA CHLORIDE 0.9% 250 ML ONE ×2 (17:09→19:56)
[2022-03-27 21:45] LABS: Urine Blood Negative (Negative); Urine Glucose Negative (Negative); Urine Protein Negative (Negative)
--- NOTE | 2022-03-27 23:44 | ER ---
Nurse's Notes [facility] Name: Anil Penaloza Age: 66 yrs Sex: Male : 1955 Arrival Date: 03/27/2022 Time: 13:58 Bed 18 Private MD: Diagnosis: Anemia, unspecified Presentation: 03/27 14:06 Chief complaint: Patient states: Generalized weakness and SOB x 3 weeks ago. Pt reports aa5 he had heart cath scheduled for today and was told to come to ER due to low hemoglobin. Coronavirus screen: shortness of breath. Ebola Screen: Patient denies travel to an Ebola-affected area in the 21 days before illness onset. Initial Sepsis Screen: Does the patient meet any 2 criteria? No. Patient's initial sepsis screen is negative. Does the patient have a suspected source of infection? No. Patient's initial sepsis screen is negative. Risk Assessment: Do you want to hurt yourself or someone else? Patient reports no desire to harm self or others. Onset of symptoms was February 2022. 14:06 Method Of Arrival: Ambulatory aa5 14:06 Acuity: GROVER 2 aa5 Historical: - Allergies: 14:06 No Known Allergies; aa5 - Home Meds: 14:05 Plavix Oral [Active]; aa5 - PMHx: 14:02 Hypertension; aa5 - PSHx: 14:05 heart stent; aa5 - Immunization history:: Adult Immunizations unknown. - Social history:: Smoking status: Patient denies any tobacco usage or history of. Screenin:25 [facility] ED Fall Risk Assessment (Adult) History of falling in the last 3 months, aa9 including since admission No falls in past 3 months (0 pts) Confusion or Disorientation No (0 pts) Intoxicated or Sedated No (0 pts) Impaired Gait No (0 pts) Mobility Assist Device Used No (0 pt) Altered Elimination No (0 pt) Score/Fall Risk Level 0 - 2 = Low Risk. Abuse screen: Denies threats or abuse. Denies injuries from another. Nutritional screening: No deficits noted. Tuberculosis screening: No symptoms or risk factors identified. Assessment: 19:40 Reassessment: Patient appears in no apparent distress at this time. Patient is alert, aa9 oriented x 3, equal unlabored respirations, skin warm/dry/pink. blood infusion continued, pt denies pain, breathing equal and regular, at bedside. 20:56 Reassessment: Patient appears in no apparent distress at this time. Patient is alert, aa9 oriented x 3, equal unlabored respirations, skin warm/dry/pink. blood transfusion started. Pain: Denies pain. 22:24 Reassessment: Patient appears in no apparent distress at this time. Patient is alert, aa9 oriented x 3, equal unlabored respirations, skin warm/dry/pink. General: Appears in no apparent distress. comfortable, Behavior is calm, cooperative, appropriate for age. Pain: Denies pain. 23:22 Reassessment: Patient appears in no apparent distress at this time. blood transfusion aa9 complete. Pain: Denies pain. Vital Signs: 14:06 BP 162 / 74; Pulse 67; Resp 20 S; Temp 98.4(TE); Pulse Ox 100% on R/A; Weight 104.33 kg aa5 (R); Height 5 ft. 11 in. (180.34 cm) (R); 19:40 BP 135 / 65; Pulse 63; Resp 20 S; Pulse Ox 99% on R/A; aa9 22:24 BP 159 / 59; Pulse 63; Resp 19 S; Pulse Ox 100% on R/A; aa9 14:06 Body Mass Index 32.08 (104.33 kg, 180.34 cm) aa5 ED Course: 13:58 Patient arrived in ED. am2 14:04 Arm band placed on. aa5 14:08 Triage completed. aa5 14:20 Kilo Emmanuel [facility]. pm1 14:20 Usha Mathews MD is Attending Physician. pm1 14:20 Initial lab(s) drawn, by oh, sent to lab. Inserted saline lock: 20 gauge in right aa5 forearm, using aseptic technique. Blood collected. 15:16 Michell Castañeda, JOHN is Primary Nurse. kr3 18:33 Bb Add On Sent. kr3 22:25 Patient has correct armband on for positive identification. Bed in low position. Call aa9 light in reach. Side rails up X2. Adult w/ patient. Client placed on continuous cardiac and pulse oximetry monitoring. NIBP monitoring applied. Door closed. Warm blanket given. 22:25 No provider procedures requiring assistance completed. aa9 23:48 IV discontinued, intact, bleeding controlled, No redness/swelling at site. Pressure aa9 dressing applied. Administered Medications: 23:31 Drug: NS 0.9% 500 ml Route: IV; Rate: bolus; Site: right antecubital; aa9 Medication: 22:25 VIS not applicable for this client. aa9 Outcome: 23:43 Discharge ordered by . pm1 23:48 Discharged to home ambulatory, with significant other. aa9 23:48 Condition: stable 23:48 Discharge instructions given to patient, family, Instructed on discharge instructions, follow up and referral plans. Demonstrated understanding of instructions, follow-up care. 23:48 Patient left the ED. aa9 Signatures: Leah Orellana, RN RN aa5 Kilo Emmanuel NP HORTICULTURALIST pm1 Desiree Angel am2 Sasha Ga, RN RN aa9 Michell Castañeda RN RN kr3
--- NOTE | 2022-03-27 23:44 | EDPHYS ---
Physician Documentation [facility] Name: Anil Penaloza Age: 66 yrs Sex: Male : 1955 Arrival Date: 03/27/2022 Time: 13:58 Bed 18 Private MD: ED Physician Usha Mathews HPI: 03/27 14:09 This 66 yrs old Male presents to ER via Ambulatory with complaints of Abnormal Lab pm1 Results - low hgb. 14:09 66-year-old male presents ER with complaints of abnormal lab results, low hemoglobin. pm1 Patient was getting preop labs for cardiac cath tomorrow with Dr. Awad and was informed that his hemoglobin was low and recommended evaluation and treatment in the ER. Patient with 3 weeks of shortness of breath on exertion and was seen by cardiology with planned cardiac cath tomorrow. Patient denies any obvious bleeding. Negative for black or tarry stool, or bright red blood in stool or urine. Historical: - Allergies: 14:06 No Known Allergies; aa5 - Home Meds: 14:05 Plavix Oral [Active]; aa5 - PMHx: 14:02 Hypertension; aa5 - PSHx: 14:05 heart stent; aa5 - Immunization history:: Adult Immunizations unknown. - Social history:: Smoking status: Patient denies any tobacco usage or history of. ROS: 14:09 Constitutional: Negative for fever, chills, and weight loss. pm1 14:09 Abdomen/GI: Negative for abdominal pain, nausea, vomiting, diarrhea, and constipation, Back: Negative for injury and pain, : Negative for injury, bleeding, discharge, and swelling, MS/Extremity: Negative for injury and deformity, Skin: Negative for injury, rash, and discoloration, Neuro: Negative for headache, weakness, numbness, tingling, and seizure. 14:09 Cardiovascular: Negative for chest pain. 14:09 Respiratory: Positive for shortness of breath, on exertion. 14:09 All other systems are negative. Exam: 14:09 Constitutional: This is a well developed, well nourished patient who is awake, alert, pm1 and in no acute distress. Head/Face: Normocephalic, atraumatic. 14:09 Eyes: Periorbital structures: no acute changes, Conjunctiva: pale. 14:09 ENT: Exam is negative for acute changes, Mouth: no acute changes, Lips: normal, moist, Oral mucosa: normal, pink and intact, moist. 14:09 Cardiovascular: Exam negative for acute changes, Rate: normal, Rhythm: regular, Pulses: no pulse deficits are appreciated, Heart sounds: normal, normal S1and S2. 14:09 Respiratory: Exam negative for acute changes, respiratory distress, shortness of breath, Breath sounds: are clear throughout. 14:09 Skin: Appearance: normal except for affected area, Color: pale. 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 Vital Signs: 14:06 BP 162 / 74; Pulse 67; Resp 20 S; Temp 98.4(TE); Pulse Ox 100% on R/A; Weight 104.33 kg aa5 (R); Height 5 ft. 11 in. (180.34 cm) (R); 19:40 BP 135 / 65; Pulse 63; Resp 20 S; Pulse Ox 99% on R/A; aa9 22:24 BP 159 / 59; Pulse 63; Resp 19 S; Pulse Ox 100% on R/A; aa9 14:06 Body Mass Index 32.08 (104.33 kg, 180.34 cm) aa5 MDM: 14:20 Patient medically screened. pm1 14:34 Data reviewed: radiologic studies, Chest x-ray from this morning reviewed. Report: pm1 Negative for acute cardiopulmonary findings. 17:20 Differential diagnosis: Unspecified Anemia, Iron deficiency GI bleed. pm1 17:40 ED course: Patient will be getting NS 250 mL x 2 with his blood transfusion. We will pm1 add 500 mL bolus to give patient 1 L total of NS after infusion of 2nd unit of blood. BUN and creatinine 32 and 1.6 respectively suspect some dehydration present and will hydrate. 23:42 Counseling: I had a detailed discussion with the patient and/or guardian regarding: the pm1 historical points, exam findings, and any diagnostic results supporting the discharge/admit diagnosis, lab results, the need for outpatient follow up, a pharm spec, a family practitioner, to return to the emergency department if symptoms worsen or persist or if there are any questions or concerns that arise at home. 03/27 14:08 Order name: Basic Metabolic Panel; Complete Time: 17:20 [facility] 03/27 14:08 Order name: CBC with Diff; Complete Time: 14:40 03/27 14:08 Order name: Troponin HS; Complete Time: 17:20 [facility] 03/27 14:08 Order name: Type And Screen [facility] 03/27 14:15 Order name: PT-INR; Complete Time: 17:20 [facility] 03/27 14:54 Order name: Bb Add On bd 03/27 14:08 Order name: EKG; Complete Time: 14:09 [facility] 03/27 14:08 Order name: Cardiac monitoring; Complete Time: 18:40 [facility] 03/27 14:08 Order name: EKG - Nurse/Tech; Complete Time: 18:40 [facility] 03/27 14:59 Order name: Packed RBC Leukored [facility] 03/27 16:29 Order name: ABO/RH no charge; Complete Time: 17:20 [facility] 03/27 21:45 Order name: Urine Dipstick-Ancillary; Complete Time: 22:14 [facility] 03/27 14:08 Order name: IV Saline Lock; Complete Time: 14:24 [facility] 03/27 14:08 Order name: Labs collected and sent; Complete Time: 14:24 [facility] 03/27 14:08 Order name: O2 Per Protocol; Complete Time: 18:40 [facility] 03/27 14:08 Order name: O2 Sat Monitoring; Complete Time: 18:40 [facility] 03/27 14:46 Order name: Transfuse; Complete Time: 18:33 pm1 03/27 20:44 Order name: Urine Dipstick-Ancillary (obtain specimen); Complete Time: 21:44 pm1 Administered Medications: 23:31 Drug: NS 0.9% 500 ml Route: IV; Rate: bolus; Site: right antecubital; aa9 Disposition Summary: 03/27/22 23:43 Discharge Ordered Location: Home pm1 Problem: new pm1 Symptoms: have improved pm1 Condition: Stable pm1 Diagnosis - Anemia, unspecified pm1 Followup: pm1 - With: Emergency Department - When: As needed - Reason: Worsening of condition Followup: pm1 - With: Private Physician - When: 2 - 3 days - Reason: Recheck today's complaints, Continuance of care, Re-evaluation by your physician Discharge Instructions: - Discharge Summary Sheet pm1 - Anemia pm1 - Blood Transfusion, Adult pm1 Forms: - Medication Reconciliation Form pm1 - Thank You Letter pm1 - Antibiotic Education pm1 - Prescription Opioid Use pm1 Signatures: Dispatcher [employer] EDRI Leah Orellana, RN RN aa5 Kilo Emmanuel NP [employer] pm1 Sasha Ga RN RN aa9 Corrections: (The following items were deleted from the chart) 14:32 14:09 Chest Single View+RAD.RAD.BRZ ordered. [facility] EDRI 17:46 17:40 ED course: Patient will be getting NS 250 mL x 2 with his blood transfusion. We pm1 will add 500 mL bolus to give patient 1 L total of NS. BUN and creatinine 32 and 1.6 respectively suspect some dehydration will hydrate. pm1
[2022-03-27 23:58] VITALS: TEMP 98.4
[2022-03-27 23:59] VITALS: BP 159/59; O2SAT 100
== END 2022-03-27 23:48 | disposition home or self-care (01) ==
LOC: ER 13:57
PROC: 30233N1 Transfusion of Nonautologous Red Blood Cells into Peripheral Vein, Percutaneous Approach (ICD-10-PCS; principal; 2022-03-27)
DX: D64.9 Anemia, unspecified (principal); I10 Essential (primary) hypertension; Z79.01 Long term (current) use of anticoagulants; Z95.818 Presence of other cardiac implants and grafts
CPT/HCPCS: 85025; 80048; 36415; 86900; 86850; 85610; 86901; 81003; 84484; 36430; P9016 ×2; J7050 ×2

== ENCOUNTER 2022-05-07 18:35 | Emergency (ER) | payer OTHER ==
[2022-05-07 20:50] LABS: Hematocrit 23.9 % (39.6-49.0); MCV 75.1 fL (80-100); MPV 6.9 fL (7.6-11.3); RBC Red Blood Cell Count 3.18 M/uL (4.33-5.43)
[2022-05-07 20:51] LABS: Anisocytosis 1+; Blood Morphology Comment NOTED (NOT SEEN); Platelet Estimate ADEQ; White Blood Cell Scan OK (OK)
[2022-05-07 20:59] LABS: Protime INR 1.19
[2022-05-07 21:05] LABS: Potassium 4.6 mmol/L (3.5-5.1)
--- NOTE | 2022-05-07 21:24 | EDPHYS ---
Physician Documentation [facility] Name: Anil Penaloza Age: 66 yrs Sex: Male : 1955 Arrival Date: 05/07/2022 Time: 18:38 Bed IW1 Private MD: Stanley NICHOLS; Martin Pérez H ED Physician Kit Kumar HPI: 05/07 21:18 This 66 yrs old Male presents to ER via Ambulatory with complaints of Abnormal Lab kdr Results, blood transfusion. 21:18 Patient was sent by his physician staff for possible blood transfusion secondary to a kdr low hemoglobin. Patient had blood draw about a week ago and the results are given in today and were reported as 7.2 hemoglobin. Patient denies any new symptoms does not feel short of breath not have any chest pain denies rectal bleeding or vomiting. He has had in the last several weeks a full GI upper and lower work-up without etiology for his low hemoglobin being found. Patient is completely asymptomatic and would not be here except for the urge from his physician's office to come get checked out.. Onset: The symptoms/episode began/occurred at an unknown time. Severity of symptoms: At their worst the symptoms were mild moderate just prior to arrival, in the emergency department the symptoms are unchanged. The patient has experienced similar episodes in the past, chronically. The patient has been recently seen by a physician: the patient's primary care provider. Historical: - Allergies: 19:25 No Known Allergies; pf1 - Immunization history:: Adult Immunizations up to date. - Social history:: Smoking status: unknown. ROS: 21:18 Constitutional: Negative for fever, chills, and weight loss, Eyes: Negative for injury, kdr pain, redness, and discharge, ENT: Negative for injury, pain, and discharge, Neck: Negative for injury, pain, and swelling, Cardiovascular: Negative for chest pain, palpitations, and edema, Respiratory: Negative for shortness of breath, cough, wheezing, and pleuritic chest pain, Abdomen/GI: Negative for abdominal pain, nausea, vomiting, diarrhea, and constipation, Back: Negative for injury and pain, : Negative for injury, bleeding, discharge, and swelling, MS/Extremity: Negative for injury and deformity, Skin: Negative for injury, rash, and discoloration, Neuro: Negative for headache, weakness, numbness, tingling, and seizure activity. Psych: Negative for depression, anxiety, suicide ideation, homicidal ideation, and hallucinations, Allergy/Immunology: Negative for hives, rash, and allergies, Endocrine: Negative for neck swelling, polydipsia, polyuria, polyphagia, and marked weight changes, Hematologic/Lymphatic: Negative for swollen nodes, abnormal bleeding, and unusual bruising. Exam: 21:18 Constitutional: [facility] and no exam was performed other than kdr gross observation. Patient appeared alert and oriented and without any evidence of endorgan damage secondary to a globin. He ambulated and was not dizzy or orthostatic. His speech was clear and appropriate. He had no signs of cyanosis. He was not short of breath. He denies any abdominal pain. His exam otherwise from a gross observation perspective was completely normal Vital Signs: 19:22 BP 164 / 65; Pulse 73; Resp 18; Temp 98.1; Pulse Ox 99% on R/A; Weight 104.33 kg; pf1 Height 5 ft. 11 in. (180.34 cm); Pain 0/10; 21:39 BP 157 / 60; Pulse 68; Resp 18; Temp 98; Pulse Ox 100% on R/A; Pain 0/10; pf1 19:22 Body Mass Index 32.08 (104.33 kg, 180.34 cm) pf1 MDM: 21:18 Data reviewed: vital signs, nurses notes, lab test result(s). ED course: Patient was kdr stable in the ED and was happy with the care provided and the plan for discharge and follow-up. 21:23 Patient medically screened. kdr 21:23 ED course: Patient also reported that he had been on iron supplementation for the last kdr week or so as well. 05/07 19:54 Order name: CBC with Diff kdr 05/07 19:54 Order name: Chem 7 kdr 05/07 19:54 Order name: PT-INR kdr 05/07 19:54 Order name: Type And Screen kdr 05/07 20:52 Order name: CBC with Automated Diff; Complete Time: 21:11 EDMS 05/07 20:52 Order name: CBC Smear Scan; Complete Time: 21:11 EDMS 05/07 20:59 Order name: Protime (+INR); Complete Time: 21:11 EDMS 05/07 21:05 Order name: Basic Metabolic Panel; Complete Time: 21:11 EDMS 05/07 21:35 Order name: Type and Screen EDMS Administered Medications: No medications were administered Disposition Summary: 05/07/22 21:23 Discharge Ordered Location: Home kdr Problem: new kdr Symptoms: have improved kdr Condition: Stable kdr Diagnosis - Anemia, unspecified kdr Followup: kdr - With: Martin Pérez MD - When: 2 - 3 days - Reason: If symptoms return, Further diagnostic work-up, Recheck today's complaints, Continuance of care, Re-evaluation by your physician Discharge Instructions: - Discharge Summary Sheet kdr - Anemia kdr Forms: - Medication Reconciliation Form kdr - Thank You Letter kdr Signatures: Dispatcher [employer] Kit Berkowitz MD MD kdr Rachel gaytan RN RN pf1 Corrections: (The following items were deleted from the chart) 19:26 19:25 PMHx: Hypertension; pf1 pf1 19:26 19:25 PSHx: heart stent; pf1 pf1
--- NOTE | 2022-05-07 21:24 | ER ---
Nurse's Notes [facility] Name: Anil Penaloza Age: 66 yrs Sex: Male : 1955 Arrival Date: 05/07/2022 Time: 18:38 Bed IW1 Private MD: Stanley NICHOLS; Martin Pérez H Diagnosis: Anemia, unspecified Presentation: 05/07 19:22 Chief complaint: Patient states: Patient stated was sent by Dr. Pérez's office to have pf1 hemoglobin checked. Patient stated blood was taken 1 week and results came back today with a hemoglobin 7.2. Patient stated denies any symptoms or pain today. Patient stated had an endoscopy and colonoscopy on 2 weeks ago. Patient stated received 2 units of blood in March,. Coronavirus screen: Vaccine status: Patient reports receiving the 1st dose of the Covid vaccine. Ebola Screen: Patient negative for fever greater than or equal to 101.5 degrees Fahrenheit, and additional compatible Ebola Virus Disease symptoms. Initial Sepsis Screen: Does the patient meet any 2 criteria? No. Patient's initial sepsis screen is negative. Does the patient have a suspected source of infection? No. Patient's initial sepsis screen is negative. Risk Assessment: Do you want to hurt yourself or someone else?. Risk Assessment: Do you want to hurt yourself or someone else? Patient reports no desire to harm self or others. 19:22 Method Of Arrival: Ambulatory pf1 19:22 Acuity: GROVER 3 pf1 19:30 Onset of symptoms was May 07, 2022. pf1 Triage Assessment: 19:35 General: Appears in no apparent distress. pf1 19:35 General: Behavior is calm, cooperative, appropriate for age, quiet. pf1 Historical: - Allergies: 19:25 No Known Allergies; pf1 - Immunization history:: Adult Immunizations up to date. - Social history:: Smoking status: unknown. Screenin:40 [facility] ED Fall Risk Assessment (Adult) History of falling in the last 3 months, pf1 including since admission No falls in past 3 months (0 pts) Confusion or Disorientation No (0 pts) Intoxicated or Sedated No (0 pts) Impaired Gait No (0 pts) Mobility Assist Device Used No (0 pt) Altered Elimination No (0 pt) Score/Fall Risk Level 0 - 2 = Low Risk Oriented to surroundings, Maintained a safe environment, Educated pt \T\ family on fall prevention, incl call for assistance when getting out of bed, Assessed \T\ reinforced patient's understanding of fall precautions, Provided non-skid footwear, Hourly rounding (assess needs \T\ fall precautionary measures) done, Used ambulatory aids as needed (educated on \T\ assisted with), Used gait belt as appropriate. 19:40 Abuse screen: Denies threats or abuse. Nutritional screening: No deficits noted. pf1 Tuberculosis screening: No symptoms or risk factors identified. Assessment: 19:35 General: Appears in no apparent distress. comfortable, well groomed, well developed, pf1 Behavior is calm, cooperative, appropriate for age, quiet. 19:35 General: Patient stated needs to have hemoglobin levels checked . Pain: Denies pain. pf1 Neuro: No deficits noted. Level of Consciousness is awake, alert, obeys commands, Oriented to person, place, time, situation. Cardiovascular: No deficits noted. Cardiovascular: Capillary refill < 3 seconds Patient's skin is warm and dry. Respiratory: No deficits noted. Airway is patent Trachea midline Respiratory effort is even, unlabored, Respiratory pattern is regular, symmetrical, Breath sounds are clear bilaterally. GI: No deficits noted. No signs and/or symptoms were reported involving the gastrointestinal system. : No deficits noted. No signs and/or symptoms were reported regarding the genitourinary system. EENT: No deficits noted. No signs and/or symptoms were reported regarding the EENT system. Derm: No deficits noted. No signs and/or symptoms reported regarding the dermatologic system. Musculoskeletal: No deficits noted. No signs and/or symptoms reported regarding the musculoskeletal system. Vital Signs: 19:22 BP 164 / 65; Pulse 73; Resp 18; Temp 98.1; Pulse Ox 99% on R/A; Weight 104.33 kg; pf1 Height 5 ft. 11 in. (180.34 cm); Pain 0/10; 21:39 BP 157 / 60; Pulse 68; Resp 18; Temp 98; Pulse Ox 100% on R/A; Pain 0/10; pf1 19:22 Body Mass Index 32.08 (104.33 kg, 180.34 cm) pf1 ED Course: 18:38 Patient arrived in ED. as 18:38 Stanley NICHOLS is Private Physician. as 18:38 Martin Pérez MD is Private Physician. as 19:12 Kit Kumar MD is Attending Physician. kdr 19:25 Triage completed. pf1 19:35 Patient has correct armband on for positive identification. pf1 20:42 Type And Screen Sent. bc6 20:42 PT-INR Sent. bc6 20:42 Chem 7 Sent. bc6 20:42 CBC with Diff Sent. bc6 20:42 Inserted saline lock: 20 gauge in left antecubital area, using aseptic technique. bc6 21:00 Arm band placed on. pf1 21:22 Martin Pérez MD is Referral Physician. kdr 21:40 No provider procedures requiring assistance completed. IV discontinued, intact, pf1 bleeding controlled, No redness/swelling at site. Pressure dressing applied. Administered Medications: No medications were administered Medication: 19:30 VIS not applicable for this client. pf1 Outcome: 21:23 Discharge ordered by . kdr 21:41 Patient left the ED. pf1 21:41 Discharged to home ambulatory, with family. pf1 21:41 Condition: good pf1 21:41 Discharge instructions given to patient, Instructed on discharge instructions, follow up and referral plans. Demonstrated understanding of instructions, follow-up care. Signatures: Kit Kumar MD MD kdr Tanya Mcclelland Pamala, RN RN pf1 Jennifer Sweeney 6 Corrections: (The following items were deleted from the chart) 19:26 19:25 PMHx: Hypertension; pf1 pf1 : 19:25 PSHx: heart stent; pf1 pf1
[2022-05-07 22:05] VITALS: BP 157/60; TEMP 98; O2SAT 100
== END 2022-05-07 21:41 | disposition home or self-care (01) ==
LOC: ER 18:35
DX: D64.9 Anemia, unspecified (principal)
CPT/HCPCS: 36415; 80048; 85025; 85610; 86850; 86900; 86901

== ENCOUNTER 2024-06-10 12:40 | Day surgery (SDC) | payer OTHER ==
[2024-06-08 10:19] LABS: Absolute Basophils 0.1 K/uL (0-0.5); Absolute Eosinophils 0.4 K/uL (0-0.5); Absolute Monocytes 0.7 K/uL (0.1-1.3); Absolute Neutrophil 6.3 K/uL (1.8-8.0); Basophils % 1.3 % (0-1.3); Eosinophils % 4.6 % (0-4.4); Hematocrit 33.4 % (39.6-49.0); Hemoglobin 11.2 g/dL (13.6-17.9); Lymphocytes % 12.3 % (15.3-44.8); MCH 28.1 pg (27.0-35.0); MCHC 33.7 g/dL (32.0-36.0); MCV 83.6 fL (80-100); MPV 7.2 fL (7.6-11.3); Monocytes % 7.6 % (3.3-12.3); Neutrophils % 74.2 % (41.7-73.7); Nucleated Red Blood Cells % 0.1 % (0-0); Platelets 233 thou/uL (152-406); RBC Red Blood Cell Count 3.99 M/uL (4.33-5.43); Red Cell Distribution Width 15.5 % (12.1-15.2)
[2024-06-08 10:32] LABS: PT Prothrombin Time 13.4 SECONDS (10-13.0); PTT, Activated Partial Thromb 35.3 SECONDS (27.2-37.4); Protime INR 1.18
[2024-06-08 10:37] LABS: Anion Gap 7.1 mEq/L (5.0-15.0); Potassium 5.1 mEq/L (3.5-5.1)
--- NOTE | 2024-06-08 11:27 | RAD REPORT ---
EXAM: Chest Pa And Lat (2 Views) HISTORY: 68 years Male Pre-op pending heart cath COMPARISON: 11/25/2022 FINDINGS: LUNGS/PLEURA: The lungs are clear. No pleural effusions or pneumothorax. No pulmonary edema. CARDIAC/MEDIASTINUM: The cardiac silhouette is within normal limits. UPPER ABDOMEN: No significant abnormality. BONES: No acute abnormality. LINES/TUBES/OTHER: N/A IMPRESSION: No evidence of acute cardiopulmonary disease.
--- NOTE | 2024-06-10 08:45 | EKG ---
Test Date: 2024-06-08 Test Time: 10:00:01 [employer] Reactor Operator: AUSTEN MEASUREMENT RESULTS: Intervals: Rate: 52 OH: 292 QRSD: 162 QT: 444 QTc: 412 [place]: P: 68 OH: 292 QRS: -41 T: 79 INTERPRETIVE STATEMENTS: Sinus bradycardia with 1st degree AV block Left axis deviation Left bundle branch block Abnormal ECG Compared to ECG 01/11/2020 15:37:08 Left-axis deviation now present Left bundle-branch block now present Electronically Signed On 06-10-24 08:38:39 CDT by Peter Tesfaye
[~2024-06-10 12:40] MED LIST: NA CHLORIDE 0.9% 500 ML ONE
[2024-06-10] MEDS ORDERED: LIDOCAINE 1% 20 ML MDV ONE (15:25)
[2024-06-10] MEDS ORDERED: HEPARIN 10,000 UNIT/10 ML VIAL IV ONE (15:25)
[2024-06-10] MEDS ORDERED: HEPA 1000U/500MLS 2,000 UNIT/1,000 ML BAG IV ONE (15:25)
[2024-06-10] MEDS ORDERED: MIDAZOLAM HCL 2 MG/2 ML INJ ONE (15:25)
[2024-06-10] MEDS ORDERED: VERAPAMIL HCL 10 MG/4 ML VIAL IV ONE (15:25)
[2024-06-10] MEDS ORDERED: ASPIRIN 325 MG TAB ONE (15:26)
[2024-06-10] MEDS ORDERED: TICAGRELOR 90 MG TABLET PO ONE (15:26)
[2024-06-10] MEDS ORDERED: CLOPIDOGREL 75 MG TABLET ONE (15:26)
[2024-06-10] MEDS ORDERED: HEPARIN 5000 UNIT/ML 1 ML VIAL ONE (15:26)
[2024-06-10] MEDS ORDERED: FENTANYL CITR 100 MCG/2 ML ONE (15:26)
[2024-06-10] MEDS ORDERED: ATROPINE SULF 1 MG/10 ML SYR IV ONE (15:26)
[2024-06-10 18:52] VITALS: O2SAT 97
[2024-06-10 19:23] VITALS: BP 143/69
--- NOTE | 2024-06-10 21:00 | OP ---
Date of Procedure: 06/10/2024 Surgeon: ONEIDA GRAFF Procedures Performed: 1. Selective coronary angiogram. 2. Left heart catheterization. 3. Right heart catheterization. Indications: 1. Aortic valve stenosis. 2. Unstable angina. Access: 1. Right radial artery 6-Ghanaian, closed with TR band. 2. Right IJ 7-Ghanaian, closed with manual pressure. Complications: None. Bleeding: Less than 50 mL. Total Sedation Time: 1 hour. Description Of Procedure: After risks, benefits, and alternatives were explained, patient agreed to procedure and signed informed consent. The patient was brought into cardiac catheterization laborato , prepped and draped in usual sterile fashion. Then, I accessed right radial artery using pediatri c micropuncture kit and ultrasound guidance, and placed a 6-Ghanaian Slender sheath and then I accessed right IJ using micropuncture kit and ultrasound guidance, and placed 7-Ghanaian [place] sheath. Then , took a 7-Ghanaian balloon-tipped Hardin catheter through the IJ access into the right atrium, right attila tricle, pulmonary artery and wedge, obtained waveform and pressure and then measured the cardiac outp ut by thermodilutional method. Hardin was removed, IJ access was removed, and manual pressure was used for closure. Good hemostasis and then took 5-Gh[place]ian [place] 4 catheter through the radial access over J-wire into the aortic root, crossed the aortic valve, measured the LVEDP and pullback was done, rec ommended a mild gradient. Then, I engaged left main, took standard views, and then the RCA and took standard views and removed the catheter and the sheath, placed TR band with good hemostasis. Findings: Coronary angiogram: 1. The left main is large and normal. 2. LAD: Very large vessel, more than 4 mm proximally, has 40% proximal segment, 30% in the mid segme nt, and the mid to distal there is a focal 50% stenosis. Diagonal branches with luminal irregulariti es. 3. Left circumflex: Very large vessel as well and ostial 40% and then OM branch takes off and has wi shruthi patent stent and there is 40% of the left circumflex after the takeoff of the OM branch, but it is a large vessel with RACHAEL-3 flow. 4. RCA is large and dominant circulation, proximal 50% to 60% stenosis and luminal irregularities and distally there is 40% stenosis and the PDA and PLB are with luminal irregularities. Right heart catheterization numbers: RA pressure is 6, RV pressure is 32/2, mean of 8. PA pressure is 39/4, mean of 20. Pulmonary wedge pressure was 13 and LVEDP was 13 mmHg. The cardiac output was 6.14 L/minutes and the aortic valve gradient was 20 mmHg. The mean aortic valve gradient was 20 mmHg and aortic valve area was calculated at 1.7 sq cm. Conclusion: 1. Moderate coronary artery disease, diffuse multivessel. 2. Mild aortic valve stenosis. Recommendation: Medical management. Plan: Stress test in a year. SR/MODL Voice ID: [id number] Report ID: [id number]
== END 2024-06-10 19:15 | disposition home or self-care (01) ==
LOC: CCL 12:40
PROVIDERS: ATTEND Internal Medicine
DX: I25.110 Atherosclerotic heart disease of native coronary artery with unstable angina pectoris (principal); I35.0 Nonrheumatic aortic (valve) stenosis; I70.223 Atherosclerosis of native arteries of extremities with rest pain, bilateral legs; I65.23 Occlusion and stenosis of bilateral carotid arteries; I10 Essential (primary) hypertension; E78.2 Mixed hyperlipidemia; Z95.5 Presence of coronary angioplasty implant and graft; Z87.891 Personal history of nicotine dependence; Z79.82 Long term (current) use of aspirin; Z79.899 Other long term (current) drug therapy; Z82.49 Family history of ischemic heart disease and other diseases of the circulatory system
CPT/HCPCS: 93005; 85025; 80048; 36415; 85610; 85730; 71046; 93460; 76937; C1893; Q9966; J1644; J2003; J2250; J3010; J7040; 99152; 99153; J0461